=== PATIENT | male | born 1950 | race Caucasian/White ===

== ENCOUNTER → 2019-07-10 | Outpatient (CLI) | payer MEDICARE, OTHER ==
[2019-07-10 11:43] LABS: Microalb/Creat Ratio UR, Rand 11.122 mg/g (0.000-30.000); Microalbumin, Random Urine 5.45 mg/L (0.000-20.000)
== END | disposition home or self-care (01) ==
LOC: LAB RH 10:54 → EDSTATUS 14:15 → LAB RH 14:43
DX: R80.9 Proteinuria, unspecified (principal)
CPT/HCPCS: 82043; 82570

== ENCOUNTER → 2019-08-11 | Outpatient (CLI) | payer MEDICARE, OTHER ==
[2019-08-11 10:18] LABS: International Normalized Ratio 2.24; Prothrombin Time Results 22.9 Sec (9.7-11.5)
== END | disposition home or self-care (01) ==
LOC: LAB RH 08:20 → EDSTATUS 14:01
DX: I25.10 Atherosclerotic heart disease of native coronary artery without angina pectoris (principal); M79.2 Neuralgia and neuritis, unspecified
CPT/HCPCS: 36415; 85610

== ENCOUNTER → 2019-08-25 | Outpatient (CLI) | payer MEDICARE, OTHER ==
[2019-08-25 10:21] LABS: International Normalized Ratio 1.44; Prothrombin Time Results 15.1 Sec (9.7-11.5)
== END | disposition home or self-care (01) ==
LOC: LAB RH 08:35 → EDSTATUS 15:31 → LAB RH 15:33
DX: I25.10 Atherosclerotic heart disease of native coronary artery without angina pectoris (principal); M79.2 Neuralgia and neuritis, unspecified
CPT/HCPCS: 36415; 85610

== ENCOUNTER → 2019-09-08 | Outpatient (CLI) | payer MEDICARE, OTHER ==
[2019-09-08 11:19] LABS: International Normalized Ratio 1.95; Prothrombin Time Results 20.1 Sec (9.7-11.5)
== END ==
LOC: LAB RH 09:46 → EDSTATUS 13:11
PROVIDERS: Family Medicine
DX: I48.0 Paroxysmal atrial fibrillation (principal)
CPT/HCPCS: 36415; 85610

== ENCOUNTER → 2019-09-15 | Outpatient (CLI) | payer MEDICARE, OTHER ==
[2019-09-15 10:24] LABS: International Normalized Ratio 2.63; Prothrombin Time Results 26.6 Sec (9.7-11.5)
== END | disposition home or self-care (01) ==
LOC: LAB RH 09:12 → EDSTATUS 14:20
PROVIDERS: Nurse Practitioner Gerontology
DX: I48.91 Unspecified atrial fibrillation (principal)
CPT/HCPCS: 36415; 85610

== ENCOUNTER → 2019-09-23 | Outpatient (CLI) | payer MEDICARE, OTHER ==
[2019-09-23 09:50] LABS: International Normalized Ratio 2.65; Prothrombin Time Results 26.8 Sec (9.7-11.5)
== END | disposition home or self-care (01) ==
LOC: LAB RH 08:09 → EDSTATUS 10:34
PROVIDERS: Family Medicine
DX: I48.0 Paroxysmal atrial fibrillation (principal)
CPT/HCPCS: 36415; 85610

== ENCOUNTER → 2019-10-07 | Outpatient (CLI) | payer MEDICARE, OTHER ==
[2019-10-07 09:34] LABS: International Normalized Ratio 2.86; Prothrombin Time Results 28.8 Sec (9.7-11.5)
== END | disposition home or self-care (01) ==
LOC: LAB RH 07:47 → EDSTATUS 11:40
PROVIDERS: Family Medicine
DX: I48.0 Paroxysmal atrial fibrillation (principal)
CPT/HCPCS: 36415; 85610

== ENCOUNTER → 2019-10-14 | Outpatient (CLI) | payer MEDICARE, OTHER ==
[2019-10-14 09:18] LABS: International Normalized Ratio 2.29; Prothrombin Time Results 23.4 Sec (9.7-11.5)
== END | disposition home or self-care (01) ==
LOC: LAB RH 07:23 → EDSTATUS 11:41
DX: I42.0 Dilated cardiomyopathy (principal)
CPT/HCPCS: 36415; 85610

== ENCOUNTER → 2019-11-06 | Outpatient (CLI) | payer MEDICARE, OTHER ==
[2019-11-06 12:10] LABS: Hematocrit 42.3 % (37.0-53.0); Mean Corpuscular HGB 28.3 pg (26.0-34.0); Mean Corpuscular HGB Conc 33.1 g/dL (31.5-36.5); Mean Corpuscular Volume 86 fL (80-100); Mean Platelet Volume 11.6 fL (9.1-12.4); Platelet Count 164 K/mm3 (150-400); RDW Coefficient Variation 11.8 % (11.7-14.2); RDW Standard Deviation 36.9 fL (35.1-46.3); Red Blood Cell Count 4.94 M/mm3 (4.30-5.90); White Blood Cell Count 5.72 K/mm3 (4.00-11.30)
[2019-11-06 12:35] LABS: Alanine Aminotransfer (ALT/SGP 15 U/L (12-78); Albumin, Blood 3.4 g/dL (3.4-5.0); Albumin/Globulin Ratio 1.1 (0.8-1.8); Alk Phos 98 U/L (50-136); Anion Gap 5 mmol/L (6-16); Aspartate Aminotrans (AST/SGOT 10 U/L (12-37); Bilirubin, Total 0.3 mg/dL (0.1-1.0); Blood Urea Nitrogen 19 mg/dL (8-24); Bun/Creatinine Ratio 18.8 (12.0-20.0); CHOL/HDL RATIO 6.5; CO2, Blood 30 mmol/L (21-32); Calcium, Blood 8.4 mg/dL (8.5-10.1); Chloride, Blood 97 mmol/L (98-108); Cholesterol 189 mg/dL (50-200); Creatinine, Blood 1.01 mg/dL (0.60-1.20); Globulin, Blood 3.1 g/dL (2.2-4.0); Glomerular Filtration Rate >60 (60-); Glucose, Blood 478 mg/dL (70-99); HDL Cholesterol 29 mg/dL (>39); LDL/HDL RATIO Unable to Calculate; Low Density Lipoprotein Chol Unable to Calculate mg/dL (0-110); Potassium, Blood 3.8 mmol/L (3.5-5.5); Sodium, Blood 132 mmol/L (136-145); Total Protein, Blood 6.5 g/dL (6.4-8.2); Triglycerides 543 mg/dL (30-160); Very Low Density Lipoprot Chol Unable to Calculate mg/dL (6-32)
[2019-11-06 12:37] LABS: Carbamazepine 7.1 ug/mL (4.0-12.0)
== END | disposition home or self-care (01) ==
LOC: LAB RH 11:21 → EDSTATUS 12:48
PROVIDERS: Family Medicine
DX: Z51.81 Encounter for therapeutic drug level monitoring (principal); E11.40 Type 2 diabetes mellitus with diabetic neuropathy, unspecified; Z79.899 Other long term (current) drug therapy
CPT/HCPCS: 80053; 80061; 80156; 83036; 85027

== ENCOUNTER → 2019-12-06 | Outpatient (CLI) | payer MEDICARE, OTHER ==
[2019-12-06 17:14] LABS: Source, Urine Clean Catch
[2019-12-06 17:22] LABS: Bilirubin, Urine Neg (Neg); Blood, Urine Neg (Neg); Glucose Qualitative, Urine 4+ (Neg); Ketones, Urine 1+ (Neg); Leukocyte Esterase, Urine Neg (Neg); Nitrite, Urine Neg (Neg); Protein, Urine Neg (Neg); Urobilinogen, Urine NORM (Normal)
[2019-12-06 17:32] LABS: Appearance, Urine Clear (Clear); Color, Urine Pale Yellow (P-Yellow)
== END | disposition home or self-care (01) ==
LOC: EDSTATUS 12:11 → LAB RH 16:10
PROVIDERS: Family Medicine
DX: N39.0 Urinary tract infection, site not specified (principal)
CPT/HCPCS: 81003

== ENCOUNTER → 2019-12-10 | Outpatient (CLI) | payer MEDICARE, OTHER ==
[2019-12-10 18:25] LABS: BASOPHILS ABSOLUTE AUTO 0.05 K/mm3 (0.00-0.23); BASOPHILS PERCENT AUTO 1 % (0-2); EOSINOPHILS PERCENT AUTO 3 % (0-6); Hematocrit 41.1 % (37.0-53.0); Hemoglobin 13.5 g/dL (13.5-17.5); IMMATURE GRAN ABSOLUTE AUTO 0.02 K/mm3 (0.00-0.10); IMMATURE GRAN PERCENT AUTO 0 % (0-1); LYMPHOCYTES ABSOLUTE AUTO 2.11 K/mm3 (0.84-5.20); LYMPHOCYTES PERCENT AUTO 30 % (21-46); MONOCYTES ABSOLUTE AUTO 0.57 K/mm3 (0.16-1.47); MONOCYTES PERCENT AUTO 8 % (4-13); Mean Corpuscular HGB 28.2 pg (26.0-34.0); Mean Corpuscular HGB Conc 32.8 g/dL (31.5-36.5); Mean Corpuscular Volume 86 fL (80-100); Mean Platelet Volume 11.2 fL (9.1-12.4); NEUTROPHILS ABSOLUTE AUTO 4.11 K/mm3 (1.96-9.15); NEUTROPHILS PERCENT AUTO 58 % (41-73); Platelet Count 203 K/mm3 (150-400); RDW Coefficient Variation 11.9 % (11.7-14.2); RDW Standard Deviation 37.5 fL (35.1-46.3); Red Blood Cell Count 4.78 M/mm3 (4.30-5.90); White Blood Cell Count 7.06 K/mm3 (4.00-11.30)
[2019-12-10 18:39] LABS: Alanine Aminotransfer (ALT/SGP 20 U/L (12-78); Alk Phos 89 U/L (50-136); Anion Gap 5 mmol/L (6-16); Aspartate Aminotrans (AST/SGOT 14 U/L (12-37); Bilirubin, Total 0.2 mg/dL (0.1-1.0); Blood Urea Nitrogen 15 mg/dL (8-24); Bun/Creatinine Ratio 15.7 (12.0-20.0); CO2, Blood 32 mmol/L (21-32); Calcium, Blood 8.2 mg/dL (8.5-10.1); Chloride, Blood 98 mmol/L (98-108); Creatinine, Blood 0.96 mg/dL (0.60-1.20); Glomerular Filtration Rate >60 (60-); Glucose, Blood 326 mg/dL (70-99); Potassium, Blood 3.9 mmol/L (3.5-5.5); Sodium, Blood 135 mmol/L (136-145)
== END | disposition home or self-care (01) ==
LOC: EDSTATUS 12:12 → LAB RH 18:11
PROVIDERS: Family Medicine
DX: I50.30 Unspecified diastolic (congestive) heart failure (principal)
CPT/HCPCS: 80053; 85025

== ENCOUNTER → 2020-01-05 | Outpatient (CLI) | payer MEDICARE, OTHER ==
[2020-01-05 14:11] LABS: Anion Gap 3 mmol/L (6-16); Blood Urea Nitrogen 12 mg/dL (8-24); Bun/Creatinine Ratio 14.3 (12.0-20.0); CO2, Blood 36 mmol/L (21-32); Calcium, Blood 8.8 mg/dL (8.5-10.1); Chloride, Blood 97 mmol/L (98-108); Creatinine, Blood 0.84 mg/dL (0.60-1.20); Glomerular Filtration Rate >60 (60-); Glucose, Blood 229 mg/dL (70-99); Potassium, Blood 3.8 mmol/L (3.5-5.5); Sodium, Blood 136 mmol/L (136-145)
== END | disposition home or self-care (01) ==
LOC: EDSTATUS 10:48 → LAB RH 13:21
PROVIDERS: Family Medicine
DX: E11.40 Type 2 diabetes mellitus with diabetic neuropathy, unspecified (principal)
CPT/HCPCS: 80048

== ENCOUNTER → 2020-03-04 | Outpatient (CLI) | payer MEDICARE, OTHER ==
[2020-03-04 11:26] LABS: Prothrombin Time Results 61.3 Sec (9.7-11.5)
[2020-03-04 11:27] LABS: International Normalized Ratio 6.36
[2020-03-04 19:28] LABS: BASOPHILS ABSOLUTE AUTO 0.05 K/mm3 (0.00-0.23); BASOPHILS PERCENT AUTO 1 % (0-2); EOSINOPHILS ABSOLUTE AUTO 0.28 K/mm3 (0.00-0.68); EOSINOPHILS PERCENT AUTO 3 % (0-6); Hematocrit 42.9 % (37.0-53.0); Hemoglobin 14.1 g/dL (13.5-17.5); IMMATURE GRAN ABSOLUTE AUTO 0.04 K/mm3 (0.00-0.10); IMMATURE GRAN PERCENT AUTO 1 % (0-1); LYMPHOCYTES ABSOLUTE AUTO 2.66 K/mm3 (0.84-5.20); LYMPHOCYTES PERCENT AUTO 31 % (21-46); MONOCYTES ABSOLUTE AUTO 0.78 K/mm3 (0.16-1.47); MONOCYTES PERCENT AUTO 9 % (4-13); Mean Corpuscular HGB 28.3 pg (26.0-34.0); Mean Corpuscular HGB Conc 32.9 g/dL (31.5-36.5); Mean Corpuscular Volume 86 fL (80-100); Mean Platelet Volume 10.8 fL (9.1-12.4); NEUTROPHILS ABSOLUTE AUTO 4.76 K/mm3 (1.96-9.15); NEUTROPHILS PERCENT AUTO 56 % (41-73); Platelet Count 201 K/mm3 (150-400); Red Blood Cell Count 4.99 M/mm3 (4.30-5.90); White Blood Cell Count 8.57 K/mm3 (4.00-11.30)
[2020-03-04 20:24] LABS: Alanine Aminotransfer (ALT/SGP 24 U/L (12-78); Albumin, Blood 3.3 g/dL (3.4-5.0); Albumin/Globulin Ratio 1.1 (0.8-1.8); Alk Phos 72 U/L (50-136); Anion Gap 5 mmol/L (6-16); Aspartate Aminotrans (AST/SGOT 15 U/L (12-37); Bilirubin, Total 0.3 mg/dL (0.1-1.0); Blood Urea Nitrogen 21 mg/dL (8-24); Bun/Creatinine Ratio 19.1 (12.0-20.0); CO2, Blood 35 mmol/L (21-32); Calcium, Blood 8.6 mg/dL (8.5-10.1); Chloride, Blood 98 mmol/L (98-108); Globulin, Blood 3.1 g/dL (2.2-4.0); Glomerular Filtration Rate >60 (60-); Glucose, Blood 238 mg/dL (70-99); Potassium, Blood 3.7 mmol/L (3.5-5.5); Sodium, Blood 138 mmol/L (136-145); Total Protein, Blood 6.4 g/dL (6.4-8.2)
== END | disposition home or self-care (01) ==
LOC: EDSTATUS 08:23 → LAB RH 10:49
PROVIDERS: Family Medicine
DX: I25.10 Atherosclerotic heart disease of native coronary artery without angina pectoris (principal); I48.0 Paroxysmal atrial fibrillation; I10 Essential (primary) hypertension
CPT/HCPCS: 80053; 83880; 85025; 85610

== ENCOUNTER → 2020-09-14 | Outpatient (CLI) | payer MEDICARE, OTHER ==
[~2020-09-14] MED LIST: ACET325 PO; ANORO ELLIPTA1 EACH INH; ATOR20 PO; CARV25 PO; ELIQUIS5 M2 PO; FURO40 PO; HYDRA25 PO; LATA.005SO RIGHTEYE; LEVE500 PO; SENN187 PO; TERA5 PO
[2020-09-14 11:20] LABS: Anion Gap 1 mmol/L (6-16); Blood Urea Nitrogen 12 mg/dL (8-24); Bun/Creatinine Ratio 12.8 (12.0-20.0); CO2, Blood 42 mmol/L (21-32); Calcium, Blood 8.9 mg/dL (8.5-10.1); Chloride, Blood 96 mmol/L (98-108); Creatinine, Blood 0.94 mg/dL (0.60-1.20); Glomerular Filtration Rate >60 (60-); Glucose, Blood 108 mg/dL (70-99); Potassium, Blood 3.7 mmol/L (3.5-5.5); Sodium, Blood 139 mmol/L (136-145)
== END | disposition home or self-care (01) ==
LOC: LAB RH 09:57 → EDSTATUS 12:21
PROVIDERS: Family Medicine
DX: E11.40 Type 2 diabetes mellitus with diabetic neuropathy, unspecified (principal); I10 Essential (primary) hypertension
CPT/HCPCS: 80048; 83036

== ENCOUNTER → 2020-12-27 | Outpatient (CLI) | payer MEDICARE, OTHER ==
[2020-12-27 20:14] LABS: Hematocrit 46.2 % (37.0-53.0); Hemoglobin 13.9 g/dL (13.5-17.5); Mean Corpuscular HGB 26.1 pg (26.0-34.0); Mean Corpuscular HGB Conc 30.1 g/dL (31.5-36.5); Mean Corpuscular Volume 87 fL (80-100); Mean Platelet Volume 10.5 fL (9.1-12.4); Platelet Count 213 K/mm3 (150-400); RDW Coefficient Variation 12.6 % (11.7-14.2); RDW Standard Deviation 39.6 fL (35.1-46.3); Red Blood Cell Count 5.32 M/mm3 (4.30-5.90); White Blood Cell Count 7.33 K/mm3 (4.00-11.30)
[2020-12-27 20:36] LABS: Anion Gap 2 mmol/L (6-16); Blood Urea Nitrogen 14 mg/dL (8-24); Bun/Creatinine Ratio 13.2 (12.0-20.0); CO2, Blood 39 mmol/L (21-32); Calcium, Blood 8.7 mg/dL (8.5-10.1); Chloride, Blood 94 mmol/L (98-108); Creatinine, Blood 1.06 mg/dL (0.60-1.20); Glomerular Filtration Rate >60 (60-); Glucose, Blood 183 mg/dL (70-99); Potassium, Blood 3.9 mmol/L (3.5-5.5); Sodium, Blood 135 mmol/L (136-145)
== END ==
LOC: EDSTATUS 10:03 → LAB RH 19:06
PROVIDERS: Internal Medicine
DX: R73.09 Other abnormal glucose (principal); R79.89 Other specified abnormal findings of blood chemistry; R68.89 Other general symptoms and signs
CPT/HCPCS: 80048; 83036; 85027

== ENCOUNTER 2021-01-16 07:17 | Emergency (ER) | payer MEDICARE, OTHER ==
[~2021-01-16] VITALS: Ht 175.3 cm; Wt 114.3 kg
[2021-01-16 07:37] LABS: Source, Urine Clean Catch
[2021-01-16 07:48] LABS: Appearance, Urine Clear (Clear); Bilirubin, Urine Neg (Neg); Blood, Urine Neg (Neg); Color, Urine Yellow (P-Yellow); Glucose Qualitative, Urine Neg (Neg); Ketones, Urine Neg (Neg); Leukocyte Esterase, Urine Neg (Neg); Nitrite, Urine Neg (Neg); Protein, Urine 2+ (Neg); Urobilinogen, Urine NORM (Normal)
[2021-01-16 08:05] LABS: Bacteria Not Seen /hpf; Red Blood Cells, Urine 0-2 /hpf (0-2); Squamous Epithelial Cells Not Seen /hpf (Few); White Blood Cells, Urine 0-2 /hpf (0-5)
[2021-01-16 08:07] LABS: BASOPHILS ABSOLUTE AUTO 0.07 K/mm3 (0.00-0.23); BASOPHILS PERCENT AUTO 1 % (0-2); EOSINOPHILS ABSOLUTE AUTO 0.26 K/mm3 (0.00-0.68); EOSINOPHILS PERCENT AUTO 3 % (0-6); Hematocrit 47.7 % (37.0-53.0); Hemoglobin 14.5 g/dL (13.5-17.5); IMMATURE GRAN ABSOLUTE AUTO 0.03 K/mm3 (0.00-0.10); IMMATURE GRAN PERCENT AUTO 0 % (0-1); LYMPHOCYTES ABSOLUTE AUTO 1.87 K/mm3 (0.84-5.20); LYMPHOCYTES PERCENT AUTO 23 % (21-46); MONOCYTES ABSOLUTE AUTO 0.73 K/mm3 (0.16-1.47); MONOCYTES PERCENT AUTO 9 % (4-13); Mean Corpuscular HGB 26.3 pg (26.0-34.0); Mean Corpuscular HGB Conc 30.4 g/dL (31.5-36.5); Mean Corpuscular Volume 87 fL (80-100); Mean Platelet Volume 10.4 fL (9.1-12.4); NEUTROPHILS ABSOLUTE AUTO 5.24 K/mm3 (1.96-9.15); NEUTROPHILS PERCENT AUTO 64 % (41-73); Platelet Count 194 K/mm3 (150-400); RDW Coefficient Variation 12.4 % (11.7-14.2); RDW Standard Deviation 39.3 fL (35.1-46.3); Red Blood Cell Count 5.51 M/mm3 (4.30-5.90)
[2021-01-16 08:26] LABS: Alanine Aminotransfer (ALT/SGP 17 U/L (12-78); Albumin, Blood 3.2 g/dL (3.4-5.0); Albumin/Globulin Ratio 0.9 (0.8-1.8); Alk Phos 88 U/L (50-136); Aspartate Aminotrans (AST/SGOT 18 U/L (12-37); Bilirubin, Total 0.6 mg/dL (0.1-1.0); Blood Urea Nitrogen 12 mg/dL (8-24); Bun/Creatinine Ratio 10.9 (12.0-20.0); Calcium, Blood 8.7 mg/dL (8.5-10.1); Chloride, Blood 94 mmol/L (98-108); Globulin, Blood 3.6 g/dL (2.2-4.0); Glomerular Filtration Rate >60 (60-); Glucose, Blood 117 mg/dL (70-99); Potassium, Blood 4.2 mmol/L (3.5-5.5); Sodium, Blood 138 mmol/L (136-145); Total Protein, Blood 6.8 g/dL (6.4-8.2); Troponin I <0.015 ng/mL (0.000-0.040)
[2021-01-16 08:40] LABS: Anion Gap Unable to Calculate mmol/L (6-16)
[2021-01-16 08:41] LABS: CO2, Blood >45 mmol/L (21-32)
[2021-01-16] MEDS ORDERED: ATOR20 PO (08:46)
[2021-01-16] MEDS ORDERED: FURO40 PO (09:06)
[2021-01-16] MEDS ORDERED: ANORO ELLIPTA1 EACH INH (09:06)
[2021-01-16] MEDS ORDERED: LATA.005SO RIGHTEYE (09:07)
[2021-01-16] MEDS ORDERED: TERA5 PO (09:07)
[2021-01-16] MEDS ORDERED: SENN187 PO (09:07)
[2021-01-16] MEDS ORDERED: LEVE500 PO (09:08)
[2021-01-16] MEDS ORDERED: ELIQUIS5 M2 PO (09:08)
[2021-01-16] MEDS ORDERED: CARV25 PO (09:08)
[2021-01-16] MEDS ORDERED: ACET325 PO (09:09)
[2021-01-16] MEDS ORDERED: HYDRA25 PO (09:09)
== END 2021-01-16 10:00 | disposition home or self-care (01) ==
LOC: ER 07:17
PROVIDERS: Emergency Medicine
DX: R10.9 Unspecified abdominal pain (principal); I48.91 Unspecified atrial fibrillation; J44.9 Chronic obstructive pulmonary disease, unspecified; E11.40 Type 2 diabetes mellitus with diabetic neuropathy, unspecified
CPT/HCPCS: 71046; 74176; 80053; 81001; 83690; 84484; 85025; 93005; 93010; 96374; 99285-25; J3010

== ENCOUNTER → 2021-02-13 | Outpatient (CLI) | payer OTHER ==
[~2021-02-13] MED LIST changes: +ALBU90OI INH; +ELIQUIS5 M3 PO; +INSULANPEN SC; +MIRALAX17 GM PO; +NITR.4SL SL; +NOVOLOG FL100 UNIT/3 SC; +POTA10T PO
[2021-02-13 23:11] LABS: BASOPHILS ABSOLUTE AUTO 0.05 K/mm3 (0.00-0.23); BASOPHILS PERCENT AUTO 1 % (0-2); EOSINOPHILS ABSOLUTE AUTO 0.26 K/mm3 (0.00-0.68); EOSINOPHILS PERCENT AUTO 4 % (0-6); Hematocrit 43.3 % (37.0-53.0); Hemoglobin 13.4 g/dL (13.5-17.5); IMMATURE GRAN ABSOLUTE AUTO 0.02 K/mm3 (0.00-0.10); IMMATURE GRAN PERCENT AUTO 0 % (0-1); LYMPHOCYTES PERCENT AUTO 26 % (21-46); MONOCYTES ABSOLUTE AUTO 0.77 K/mm3 (0.16-1.47); MONOCYTES PERCENT AUTO 11 % (4-13); Mean Corpuscular HGB 26.1 pg (26.0-34.0); Mean Corpuscular HGB Conc 30.9 g/dL (31.5-36.5); Mean Corpuscular Volume 84 fL (80-100); Mean Platelet Volume 10.5 fL (9.1-12.4); NEUTROPHILS ABSOLUTE AUTO 4.35 K/mm3 (1.96-9.15); NEUTROPHILS PERCENT AUTO 59 % (41-73); Platelet Count 187 K/mm3 (150-400); RDW Coefficient Variation 12.5 % (11.7-14.2); RDW Standard Deviation 38.3 fL (35.1-46.3); Red Blood Cell Count 5.14 M/mm3 (4.30-5.90); White Blood Cell Count 7.35 K/mm3 (4.00-11.30)
[2021-02-13 23:23] LABS: Alanine Aminotransfer (ALT/SGP 15 U/L (12-78); Albumin, Blood 3.2 g/dL (3.4-5.0); Albumin/Globulin Ratio 0.9 (0.8-1.8); Alk Phos 88 U/L (50-136); Anion Gap 1 mmol/L (6-16); Aspartate Aminotrans (AST/SGOT 14 U/L (12-37); Bilirubin, Total 0.4 mg/dL (0.1-1.0); Blood Urea Nitrogen 16 mg/dL (8-24); Bun/Creatinine Ratio 14.2 (12.0-20.0); CO2, Blood 41 mmol/L (21-32); Calcium, Blood 8.7 mg/dL (8.5-10.1); Chloride, Blood 95 mmol/L (98-108); Creatinine, Blood 1.13 mg/dL (0.60-1.20); Globulin, Blood 3.5 g/dL (2.2-4.0); Glomerular Filtration Rate >60 (60-); Glucose, Blood 184 mg/dL (70-99); Potassium, Blood 3.6 mmol/L (3.5-5.5); Sodium, Blood 137 mmol/L (136-145); Total Protein, Blood 6.7 g/dL (6.4-8.2)
== END ==
LOC: EDSTATUS 10:00 → LAB RH 21:40
PROVIDERS: Family Medicine
DX: E11.40 Type 2 diabetes mellitus with diabetic neuropathy, unspecified (principal); I48.0 Paroxysmal atrial fibrillation; Z91.041 Radiographic dye allergy status
CPT/HCPCS: 80053; 85025

== ENCOUNTER 2021-03-07 22:23 | Inpatient (IN) | payer OTHER ==
[~2021-03-07] VITALS: Ht 180.3 cm; Wt 109.3 kg
[~2021-03-07 22:23] MED LIST changes: -ALBU90OI INH; -ELIQUIS5 M3 PO; -INSULANPEN SC; -MIRALAX17 GM PO; -NITR.4SL SL; -NOVOLOG FL100 UNIT/3 SC; -POTA10T PO
[2021-03-07 23:20] LABS: BASOPHILS ABSOLUTE AUTO 0.01 K/mm3 (0.00-0.23); BASOPHILS PERCENT AUTO 0 % (0-2); EOSINOPHILS ABSOLUTE AUTO 0.02 K/mm3 (0.00-0.68); EOSINOPHILS PERCENT AUTO 0 % (0-6); Hematocrit 44.2 % (37.0-53.0); Hemoglobin 13.3 g/dL (13.5-17.5); IMMATURE GRAN ABSOLUTE AUTO 0.01 K/mm3 (0.00-0.10); IMMATURE GRAN PERCENT AUTO 0 % (0-1); LYMPHOCYTES ABSOLUTE AUTO 1.35 K/mm3 (0.84-5.20); LYMPHOCYTES PERCENT AUTO 25 % (21-46); MONOCYTES ABSOLUTE AUTO 1.08 K/mm3 (0.16-1.47); MONOCYTES PERCENT AUTO 20 % (4-13); Mean Corpuscular HGB 26.1 pg (26.0-34.0); Mean Corpuscular HGB Conc 30.1 g/dL (31.5-36.5); Mean Corpuscular Volume 87 fL (80-100); Mean Platelet Volume 10.4 fL (9.1-12.4); NEUTROPHILS ABSOLUTE AUTO 2.97 K/mm3 (1.96-9.15); NEUTROPHILS PERCENT AUTO 55 % (41-73); Platelet Count 160 K/mm3 (150-400); RDW Coefficient Variation 12.9 % (11.7-14.2); RDW Standard Deviation 41.2 fL (35.1-46.3); White Blood Cell Count 5.44 K/mm3 (4.00-11.30)
[2021-03-07 23:40] LABS: PCO2 Arterial 100 mmHg (35-45); PO2 Arterial 108 mmHg (80-100); pH Blood Arterial 7.26 (7.35-7.45)
[2021-03-07 23:41] LABS: Albumin/Globulin Ratio 0.9 (0.8-1.8); Bilirubin, Total 0.5 mg/dL (0.1-1.0); Bun/Creatinine Ratio 13.9 (12.0-20.0); Calcium, Blood 8.1 mg/dL (8.5-10.1); Creatinine, Blood 1.22 mg/dL (0.60-1.20); Globulin, Blood 3.2 g/dL (2.2-4.0); Potassium, Blood 3.8 mmol/L (3.5-5.5); Total Protein, Blood 6.2 g/dL (6.4-8.2); Troponin I 0.03 ng/mL (0.000-0.040)
[2021-03-07 23:57] LABS: SARS-Cov-2 (COVID-19) PCR, MMC POSITIVE (NEGATIVE)
[2021-03-08] MEDS ORDERED: ELIQUIS5 M3 PO (00:15)
[2021-03-08 05:14] LABS: PCO2 Arterial 75.7 mmHg (35-45); PO2 Arterial 63.7 mmHg (80-100); pH Blood Arterial 7.35 (7.35-7.45)
[2021-03-08 06:27] LABS: Anion Gap 6 mmol/L (6-16); Blood Urea Nitrogen 19 mg/dL (8-24); Bun/Creatinine Ratio 16.2 (12.0-20.0); CO2, Blood 37 mmol/L (21-32); Calcium, Blood 8.4 mg/dL (8.5-10.1); Chloride, Blood 94 mmol/L (98-108); Creatinine, Blood 1.17 mg/dL (0.60-1.20); Glomerular Filtration Rate >60 (60-); Glucose, Blood 162 mg/dL (70-99); Potassium, Blood 3.9 mmol/L (3.5-5.5); Sodium, Blood 137 mmol/L (136-145)
--- NOTE | 2021-03-08 07:19 | NUR ---
SHIFT SUMMARY PT SOMNOLENT ON BIPAP ON ARRIVAL FROM ER, DIFFICULT TO ESTABLISH WHETHER PT IS AO D/T PT SOMNOLENCE AND WEARING BIPAP. NODS AND SHAKES HEAD TO SOME ANSWERS, SHRUGS AT OTHERS, SEEMS AWARE OF SURROUNDINGS. ONCE TELE WAS SUCCESSFULLY ESTABLISHED PT'S RHYTHM SHOWS A FLUTTER IN 80'S. PT ON BIPAP 22/10 FIO2 55%. SATS 94-97% ON BIPAP. SLEEPS THROUGH AM AFTER BEING SETTLED FROM ER. IV SALINE LOCKED.
--- NOTE | 2021-03-08 07:56 | NUR ---
[place] of care Pt is a/o to himself but is having a hard time verbalizing his needs. He was given a pen and paper but his hand writing is hardly legible. He was able to report that he is confused. He is currently dependent of the Bipap @ 50 % o2. Per report he lives at [facility] which is where his lives with him. He is sitting up in bed watching tv and the bed alarm is on for his safety.
--- NOTE | 2021-03-08 12:22 | NUR ---
NEURO ASSESSMENT UPDATE: PATIENT IS SOUNDING MORE CLEAR WHEN SPEAKING, HAND WRITTEN REQUESTS MORE LEGIBLE. PATIENT MORE AWARE OF POSITION IN BED, NEEDED TO REPOSITION PATIENT, PATTIENT IS REPOSITIONED, ATTENDS C/D/I, EDUCATION GIVEN ON BIPAP THERAPY, AND GAS EXCHANGE. PATIENT IS ABLE TO USE CALL LIGHT, HEAD OF THE BED ELEVATED AND RESTING.
[2021-03-08 13:54] LABS: PCO2 Arterial 61.3 mmHg (35-45); PO2 Arterial 63.5 mmHg (80-100); pH Blood Arterial 7.42 (7.35-7.45)
[2021-03-08 15:59] LABS: Source, Urine Catheter
[2021-03-08 16:17] LABS: Appearance, Urine Clear (Clear); Bilirubin, Urine Neg (Neg); Blood, Urine 1+ (Neg); Color, Urine Yellow (P-Yellow); Glucose Qualitative, Urine Neg (Neg); Ketones, Urine 1+ (Neg); Leukocyte Esterase, Urine Neg (Neg); Nitrite, Urine Neg (Neg); Protein, Urine 2+ (Neg); Specific Gravity, Urine 1.025 (1.003-1.022); Urobilinogen, Urine NORM (Normal)
[2021-03-08 16:53] LABS: Red Blood Cells, Urine Rare /hpf (0-2); White Blood Cells, Urine 0-2 /hpf (0-5)
[2021-03-08 16:54] LABS: Bacteria Mod /hpf; Squamous Epithelial Cells Rare /hpf (Few)
--- NOTE | 2021-03-08 17:03 | NUR ---
SHIFT SUMMARY: RECIEVED PATIENT ON 03/08/2021 AT 0715, PATIENT WAS RESTING WITH A BIPAP IN PLACE AT22/10 WITH 55% O2. WHEN PREFORMING INTIAL ASSESSMENT, PATIENT WAS SPEAKING INCOMPREHENSIBLE, WAS LETHARGIC, ATRIAL FLUTTER AT 105, SPO2 IN THE 90'S. NOW, PATIENT IS ON AN OXIMIZER 13L, SP02 >94%, ATRIAL FLUTTER 82, REPOSITIONED MULTIPLE TIMES, WATERS IN PLACE, SPEECH PATHOLOGY EVAL PLEASE SEE NOTE FOR SPECIAL FEEDING INSTRUCTIONS. SPEECH IS UNDERSTANDABLE WHEN AWAKE, IS ABLE TO HELP MINIMALLY IN REPOSITIONING. CO2 61.3 AT 1353. FROM 100.0 ON FIRST ABG. SODIUM AND FLUID RESTRICTION OF 1500. 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
[2021-03-09 04:25] LABS: Anion Gap 5 mmol/L (6-16); Blood Urea Nitrogen 33 mg/dL (8-24); Bun/Creatinine Ratio 29.2 (12.0-20.0); CO2, Blood 36 mmol/L (21-32); Calcium, Blood 8.5 mg/dL (8.5-10.1); Chloride, Blood 93 mmol/L (98-108); Creatinine, Blood 1.13 mg/dL (0.60-1.20); Glomerular Filtration Rate >60 (60-); Glucose, Blood 307 mg/dL (70-99); Potassium, Blood 4.4 mmol/L (3.5-5.5); Sodium, Blood 134 mmol/L (136-145)
--- NOTE | 2021-03-09 05:51 | NUR ---
THIS LN TOOK OVER CARE AT 1845 PATIENT IS ALERT AND ORIENTATED TO SELF, PLACE AND TIME, DISORIENTATED TO SITUATION, " I TRIED TO GO TO BATHROOM DIDN'T WORK OUT', I EXPLAINED WHY PATIENT HAS BEEN ADMITTED AND HE EXPRESSED HIS AND MOM IN [place] HAVE COVID. CALL LIGHT IS WITHIN REACH AND DEMONSTRATED HOW TO USE, PATIENT IS ABLE TO MAKE NEEDS KNOWN WITH DELAYED RESPONSES, ABLE TO TURN SIDE TO SIDE AND ASSIST WITH TURNING IN BED, STILL REQUIRING 2 PEOPLE. WATERS CATETHER IS IN PLACE DRAINING YELLOW URINE, PATIENT ATE 100% OF DINNER AND 360 FLUIDS, RESTING WITH BIPAP ON, NOTED UPON INITIAL ASSESSMENT PATIENT HAS RED BLANCHABLE ON BRIDGE OF NOSE, PROTECTED GEL APPLIED AND SLEEPING WITH BIPAP ON THROUGHOUT THE NIGHT AT 22/10 FIO2 55%. THIS LN WILL CONTINUE TO MONITOR.
--- NOTE | 2021-03-09 10:55 | NUR ---
ALERT AND ORIENTED X3. ABLE TO STATE - NAME, BIRTHDATE, AT HOSPITAL AND FAMILY MEMEBERS. UNABLE TO STATE TIME/DATE. SPEECH GARBELED AND HARD TO UNDERSTAND. PATIENT HARD OF HEARING. PUPILS EQUAL, ROUND, AND REACTIVE. DENIES NUMBNESS/TINGLING. TELE SHOWING AFLUTTER WITH HR 80'S. DENIES CHEST PAIN/PRESSURE. VITAL SIGNS STABLE. ON BIPAP WITH SETTINGS 18/10 AT 45% SATING HIGH 90'S. WHEN EATING PATIENT ON 13L OXYMIZER. SPEECH THERAPY IN TO SEE PATIENT THIS AM, DIET ADVANCED. ORAL CARE Q4. DENTURES IN PLACE. BOWEL TONES PRESENT. WATERS CATH IN PLACE DRAINING CLEAR/YELLOW URINE TO GRAVITY. IV TO LEFT HAND, SALINE LOCKED. CALL LIGHT IN REACH. BED ALARM ON FOR SAFETY WILL CONTINUE TO MONITOR.
--- NOTE | 2021-03-09 13:22 | NUR ---
CALL PLACED TO DR. BATISTA. NEW ORDERS FOR PARAMETERS ON SCHEDULED HYDRALAZINE.
--- NOTE | 2021-03-09 14:41 | NUR ---
PT ABLE TO COME OFF BIPAP FOR MEALS. WHEN OFF BIPAP PATIENT MAINTAINING SATS WITH 13L OXYMIZER. ORAL CARE AFTER MEALS AND BIPAP REPLACED. CALL LIGHT IN REACH.
--- NOTE | 2021-03-09 19:19 | NUR ---
SHIFT SUMMARY: NO ACUTE CHANGES. BIPAP SETTINGS AT 18/10 AND 45% SATING 95-96%. ON 13L OXYMIZER WHEN OFF BIPAP FOR MEALS. PATIENT BEEN OFF BIPAP 1.5 HOURS THIS EVENING FOR DINNER. GOOD APPETITE, EATING WELL. Q2 TURNING AND NEEDED. SKIN C/D/I. BED BATH AND SHAVE. WATERS CATH IN PLACE DRAINING CLEAR/YELLOW URINE. CALLING APPROPRIATELY. BED ALARM ON FOR SAFETY. CALL LIGHT IN REACH. REPORTED OFF TO ONCOMING RN.
[2021-03-10 05:31] LABS: PCO2 Arterial 67.6 mmHg (35-45); PO2 Arterial 98.2 mmHg (80-100); pH Blood Arterial 7.44 (7.35-7.45)
[2021-03-10 08:58] LABS: Anion Gap 2 mmol/L (6-16); Blood Urea Nitrogen 27 mg/dL (8-24); Bun/Creatinine Ratio 27.3 (12.0-20.0); CO2, Blood 42 mmol/L (21-32); Calcium, Blood 8.4 mg/dL (8.5-10.1); Chloride, Blood 95 mmol/L (98-108); Creatinine, Blood 0.99 mg/dL (0.60-1.20); Glomerular Filtration Rate >60 (60-); Glucose, Blood 285 mg/dL (70-99); Potassium, Blood 3.9 mmol/L (3.5-5.5); Sodium, Blood 139 mmol/L (136-145)
--- NOTE | 2021-03-10 10:38 | NUR ---
PT ALERT AND ORIENTED X3-4. GARBLED SPEECH AT TIMES HARD TO UNDERSTAND. HARD OF HEARING. PUPILS EQUAL, ROUND, AND REACTIVE. DENIES NUMBNESS/TINGLING. TELE SHOWING AFLUTTER WITH HR 70'S. VITAL SIGNS STABLE. ON 10L OXYMIZER SATING HIGH 90'S WILL TITRATE DOWN TOLERATED. WEARING BIPAP WHEN SLEEPING. BOWEL TONES PRESENT. WATERS CATH IN PLACE DRAINING CLEAR/YELLOW URINE. WEAK THROUGHOUT. FEET RED/SCALEY/DRY. PHYSICAL THERAPY ORDERED. BLOOD SUGARS ACHS. WILL CONTINUE TO MONITOR. CALL LIGHT IN REACH.
--- NOTE | 2021-03-10 18:25 | NUR ---
PT RESTING IN BED AFTER PM MEDICATION ADMIN. DINNER WAS HELD IN THE PANTRY THE PT WAS TOO TIRED TO EAT. PT MAKES NO COMPLAINTS OF CHEST PAIN OR SOB AT THIS TIME. PT REMAINS ON 10L WITH SATS 90 AND ABOVE. FC DRAINING TO GRAVITY. IV SL AND WNL. PT STATES HE IS WORRIED ABOUT HIS AT [facility] SHE HAS COVID. WILL CONTINUE TO MONITOR PT.
[2021-03-11 06:03] LABS: Anion Gap 3 mmol/L (6-16); Blood Urea Nitrogen 24 mg/dL (8-24); CO2, Blood 43 mmol/L (21-32); Calcium, Blood 8.3 mg/dL (8.5-10.1); Chloride, Blood 91 mmol/L (98-108); Creatinine, Blood 0.92 mg/dL (0.60-1.20); Glomerular Filtration Rate >60 (60-); Glucose, Blood 300 mg/dL (70-99); Potassium, Blood 3.6 mmol/L (3.5-5.5); Sodium, Blood 137 mmol/L (136-145)
--- NOTE | 2021-03-11 06:04 | NUR ---
SHIFT SUMMARY: ALERT, BUT VERY TIRED T/O THE NIGHT. SLEEPING MAJORITY OF THE SHIFT. DID WAKE UP TO TAKE MEDS. DECREASE IN OXYGEN TO 7 LITERS HOLDING 96-97%. WILL DECREASE FURTHER. CATHETER PATENT AND DRAINING WELL. NO PAIN NOTED. VS WNL. AFEBRILE. REDESIMEIR ADMINISTERED. NO ACUTE CHANGES TO NOTE THIS SHIFT. CALL LIGHT IN REACH.
--- NOTE | 2021-03-11 16:17 | NUR ---
SHIFT SUMMARY PT IS AAOX3, FORGETFUL AT TIMES, SOME CONFUSION NOTED, REDIRECTABLE, [place]. PLEASANT AND COOPERATIVE TO CARE. NO C/O PAIN OR ANY DISCOMFORT THIS SHIFT. PT REMAINS ON 7L O2 VIA OXYMIZER. SATS 90-93%. PT IS ON BEDREST AND REQUIRES 2P MAX ASSIST WITH BED MOBILITY. WATERS CATH PATENT AND DRAINING WELL. PT ON 1500 FLUID RESTRICTION. PT ABLE TO TOLERATE MEDICATIONS ONE AT A TIME WITH APPLE SAUCE. BED AT LOWEST POSITION. CALL LIGHT WITHIN REACH.
[2021-03-12 05:42] LABS: BASOPHILS PERCENT AUTO 0 % (0-2); EOSINOPHILS PERCENT AUTO 0 % (0-6); Hematocrit 47.2 % (37.0-53.0); Hemoglobin 14.9 g/dL (13.5-17.5); IMMATURE GRAN ABSOLUTE AUTO 0.01 K/mm3 (0.00-0.10); IMMATURE GRAN PERCENT AUTO 0 % (0-1); LYMPHOCYTES ABSOLUTE AUTO 0.78 K/mm3 (0.84-5.20); LYMPHOCYTES PERCENT AUTO 14 % (21-46); MONOCYTES ABSOLUTE AUTO 0.53 K/mm3 (0.16-1.47); MONOCYTES PERCENT AUTO 10 % (4-13); Mean Corpuscular HGB Conc 31.6 g/dL (31.5-36.5); Mean Corpuscular Volume 82 fL (80-100); Mean Platelet Volume 10.9 fL (9.1-12.4); NEUTROPHILS ABSOLUTE AUTO 4.09 K/mm3 (1.96-9.15); NEUTROPHILS PERCENT AUTO 76 % (41-73); Platelet Count 136 K/mm3 (150-400); RDW Coefficient Variation 12.4 % (11.7-14.2); Red Blood Cell Count 5.73 M/mm3 (4.30-5.90); White Blood Cell Count 5.41 K/mm3 (4.00-11.30)
[2021-03-12 05:44] LABS: PO2 Arterial 71.6 mmHg (80-100); pH Blood Arterial 7.44 (7.35-7.45)
[2021-03-12 05:49] LABS: PCO2 Arterial 71.2 mmHg (35-45)
[2021-03-12 06:00] LABS: Anion Gap 4 mmol/L (6-16); Blood Urea Nitrogen 27 mg/dL (8-24); CO2, Blood 41 mmol/L (21-32); Calcium, Blood 9.3 mg/dL (8.5-10.1); Chloride, Blood 92 mmol/L (98-108); Glomerular Filtration Rate >60 (60-); Glucose, Blood 334 mg/dL (70-99); Potassium, Blood 3.8 mmol/L (3.5-5.5); Sodium, Blood 137 mmol/L (136-145)
--- NOTE | 2021-03-12 08:08 | NUR ---
SHIFT SUMMARY: INCREASE IN AWARENESS. MORE VERBAL. NO PAIN. CATHETER PATENT AND DRAINING. LUNG SOUNDS DIMINISHED AND TIGHT AT TIMES. DYSPNEA WITH SOME MOVEMENT BUT STATES IS HIS NORM. DECREASE TO 4 LITERS ON NC. NO COUGH NOTED TONIGHT. SLEPT WELL T/O NIGHT. VS WNL. DID HAVE CRITICAL HIGH PCO2 THIS AM. REPORT GIVEN TO DAYSHIFT. CALL LIGHT IS IN REACH.
--- NOTE | 2021-03-12 16:18 | NUR ---
SHIFT SUMMARY PT AAOX3, ABLE TO MAKE NEEDS KNOWN. [place], FORGETUL AND SOME CONFUSION NOTED. PLEASANT, REDIRECTABLE AND COOPERATIVE TO CARE. NO C/O PAIN OR ANY DISCOMFORT THIS SHIFT. PT ON 5LPM O2 VIA OXYMIZER, SATS 92-95%. NO ACUTE CHANGES NOTED TO PT THIS SHIFT. BED AT LOWEST POSITION. CALL LIGHT WITHIN REACH.
--- NOTE | 2021-03-13 01:20 | NUR ---
PHYSICIAN COMMUNICATION INFORMED DR LUCAS OF HS CBG @369 & PTS COVERAGE INCLUDED 6U NOVALOG, 15U SEMGLEE. NO NEW ORDERS GIVEN. [facility] PT.
--- NOTE | 2021-03-13 05:02 | NUR ---
SHIFT SUMMARY ALERT. WOULDNT ANSWER ORIENTATION QUESTIONS, STATED "LEAVE ME ALONE". [place]. SLOW TO RESPOND, GRUNTS & MOANS WHEN CARE GIVEN. TELE A FLUTTER @75. HS CBG @369, INFORMED NIGHT HOSPITALIST & NO NEW ORDERS GIVEN AFTER SCHEDULED INSULIN COVERAGE PROVIDED. SPO2 >90% ON 4L O2 VIA CPAP. LUNGS ARE DIM c COARSE BREATH SOUNDS. +1 EDEMA BLE. WATERS PATENT & DRAINING. CALL LIGHT IN REACH. WCTM.
--- NOTE | 2021-03-13 12:34 | NUR ---
PT HAD CBG OF 419 PT TREATED PER EMAR AND DR MCFADDEN NOTIFIED.
--- NOTE | 2021-03-13 17:10 | NUR ---
Spoke with general internal medicine doctor Columba and discussed plan to have conversation regarding Pt's who is being admitted to the hospital. Columba reports importance of speaking loud, slow, and in simple terms with Pt. Pt level of understanding and orientation is questionable. Pt is A&OX2/3. Pt appears lethargic and mumbles with difficult to understand speach. Provided update on Pt's condition and plan to admit to the hospital. Explain that is confused and plan if to follow her wishes on POLST. Pt states "I will pray for her". Pt appears to have difficulty with keeping his eyes opened. Ended visit to allow Pt to rest. Palliative Care will remain available.
--- NOTE | 2021-03-14 06:13 | NUR ---
SHIFT SUMMARY AOX2-SELF, TOWN, FOLLOWING DIRECTIONS. UNAWARE WHERE IN [place] HE IS OR DATE, SITUATION. FORGETFUL & CONFUSED @TIMES. VSS. TELE AFIB/AFLUTTER @83 PER TELE STRUCTURAL IRON ERECTOR. SPO2 >90% ON 3L NC & 8L O2 VIA CPAP BLEED IN. LUNGS COARSE T/O. DENIES PAIN, N/V OR SOB. CALL LIGHT & BED ALARM IN PLACE. WCTM.
[2021-03-14] MEDS ORDERED: INSULANPEN SC (11:51)
[2021-03-14] MEDS ORDERED: NOVOLOG FL100 UNIT/3 SC (11:53)
--- NOTE | 2021-03-14 17:27 | NUR ---
Supportive visit this afternoon. Pt's spouse is in PCU and on comfort care. Pt had discussion with this RN and PC RN Parisa earlier today about his spouse and Pt going on comfort care. Pt is in agreement. Assisted staff with escorting Pt in transport chair to Pt's room so he can say his good byes. Offered therapeutic touch and gentle voice. Assisted staff with escorting Pt back to his room. Pt appears appreciative. Instructed Pt that this RN will keep him updated regarding his spouse. Palliative Care will remain available for supportive and therapeutic visits.
--- NOTE | 2021-03-15 05:56 | NUR ---
SHIFT SUMMARY NO ACUTE CHANGES THIS SHIFT. AOX2. FORGETFUL, SLOW TO RESPOND. VSS. SPO2 >90% ON 4L OXIMIZER OR BIPAP c O2 BLEED IN. TELE AFIB @87. REPORTS HIP PAIN, GAVE TYLENOL, ABLE TO REST. PLAN TO POSSIBLY DC. CALL LIGHT & BED ALARM IN PLACE.
--- NOTE | 2021-03-15 11:34 | NUR ---
BLOOD SUGAR 402, LI CALLED AND WILL PLACE ORDERS FOR AN ADDITIONAL 5 UNITS OF NOVOLOG AT LUNCH.
--- NOTE | 2021-03-15 14:34 | NUR ---
PATIENT TRANSFERRED TO [facility] VIA W/C TRANSPORT. DC PACKET SENT WITH TOUR LEADER. SPOKE WITH ANNE-MARIE JEFFERSON ABOUT PATIENTS WATERS AND WAS INSTRUCTED TO SEND PATIENT WITH IT AND HAVE THE STAFF A [facility] DO BLADDER TRAINING BEFORE PULLING. REPORT CALLED TO NURSE STEVIE AT [facility].
[2021-03-16] MEDS ORDERED: ALBU90OI INH (13:54)
[2021-03-16] MEDS ORDERED: NITR.4SL SL (13:54)
[2021-03-16] MEDS ORDERED: HYDRA25 PO (13:57)
[2021-03-16] MEDS ORDERED: MIRALAX17 GM PO (13:57)
[2021-03-16] MEDS ORDERED: POTA10T PO (14:00)
== END 2021-03-15 14:35 | DRG 177 ==
LOC: ER 22:23 → PCU 03-08 00:58 → ERHOLD 03-08 00:58 → MEDS 03-08 00:58 → PCU 03-08 02:54 → MEDS 03-10 11:06 → ENPENDDIS 03-14 12:15 → MEDS 03-15 14:35
PROVIDERS: Emergency Medicine; Family Medicine; Internal Medicine; Nurse Practitioner Acute Care; ADMIT Internal Medicine
PROC: 8E0ZXY6 Isolation (ICD-10-PCS; principal; 2021-03-08)
PROC: 5A0935A Assistance with Respiratory Ventilation, Less than 24 Consecutive Hours, High Flow/Velocity Cannula (ICD-10-PCS; 2021-03-08)
PROC: 3E0333Z Introduction of Anti-inflammatory into Peripheral Vein, Percutaneous Approach (ICD-10-PCS; 2021-03-08)
PROC: XW033E5 Introduction of Remdesivir Anti-infective into Peripheral Vein, Percutaneous Approach, New Technology Group 5 (ICD-10-PCS; 2021-03-08)
PROC: 5A09457 Assistance with Respiratory Ventilation, 24-96 Consecutive Hours, Continuous Positive Airway Pressure (ICD-10-PCS; 2021-03-10)
DX: U07.1 COVID-19 (principal); J96.21 Acute and chronic respiratory failure with hypoxia; J96.22 Acute and chronic respiratory failure with hypercapnia; G92 Toxic encephalopathy; J12.82 Pneumonia due to coronavirus disease 2019; I50.32 Chronic diastolic (congestive) heart failure; Z68.41 Body mass index [BMI] 40.0-44.9, adult; J44.9 Chronic obstructive pulmonary disease, unspecified; E11.40 Type 2 diabetes mellitus with diabetic neuropathy, unspecified; I11.0 Hypertensive heart disease with heart failure; I48.0 Paroxysmal atrial fibrillation; G47.33 Obstructive sleep apnea (adult) (pediatric); I95.9 Hypotension, unspecified; Z95.0 Presence of cardiac pacemaker; Z98.890 Other specified postprocedural states; Z88.8 Allergy status to other drugs, medicaments and biological substances; Z79.899 Other long term (current) drug therapy; E66.9 Obesity, unspecified; T38.0X5A Adverse effect of glucocorticoids and synthetic analogues, initial encounter; E11.65 Type 2 diabetes mellitus with hyperglycemia; Z79.51 Long term (current) use of inhaled steroids; Z79.01 Long term (current) use of anticoagulants; Z99.81 Dependence on supplemental oxygen; H91.90 Unspecified hearing loss, unspecified ear; R13.10 Dysphagia, unspecified; R79.89 Other specified abnormal findings of blood chemistry
CPT/HCPCS: 36415; 36600; 71045; 80048; 80053; 81001; 82803; 82947; 83036; 83605; 83880; 84484; 85025; 85379; 87040; 92526; 92610; 93005; 93010; 94640; 94660; 94760; 94762; 96374; 97110; 97116; 97161; 97165; 97530; 97530-CQ; 97535; 99285-25; A9270; J1100; J1650; J1815; U0004

== ENCOUNTER → 2021-03-07 | Outpatient (CLI) | payer OTHER ==
[2021-03-07 12:59] LABS: Source, Urine Clean Catch
[2021-03-07 13:58] LABS: Appearance, Urine Clear (Clear); Bilirubin, Urine Neg (Neg); Blood, Urine Neg (Neg); Color, Urine Yellow (P-Yellow); Glucose Qualitative, Urine Neg (Neg); Ketones, Urine Neg (Neg); Leukocyte Esterase, Urine Neg (Neg); Nitrite, Urine Neg (Neg); Protein, Urine 2+ (Neg); Specific Gravity, Urine 1.015 (1.003-1.022); Urobilinogen, Urine NORM (Normal)
[2021-03-07 15:06] LABS: Bacteria Few /hpf; Red Blood Cells, Urine 0-2 /hpf (0-2); Squamous Epithelial Cells Few /hpf (Few); White Blood Cells, Urine 0-2 /hpf (0-5)
== END | disposition home or self-care (01) ==
LOC: EDSTATUS 09:55 → LAB RH 12:56
PROVIDERS: Family Medicine
DX: N39.0 Urinary tract infection, site not specified (principal)
CPT/HCPCS: 81001

== ENCOUNTER 2021-03-16 11:59 | Inpatient (IN) | payer OTHER ==
[~2021-03-16] VITALS: Ht 175.3 cm; Wt 105.8 kg
[~2021-03-16 11:59] MED LIST changes: +ELIQUIS5 M3 PO; +INSULANPEN SC; +NOVOLOG FL100 UNIT/3 SC
[2021-03-16 12:46] LABS: PCO2 Arterial 68.2 mmHg (35-45); pH Blood Arterial 7.45 (7.35-7.45)
[2021-03-16 13:20] LABS: BASOPHILS ABSOLUTE AUTO 0.03 K/mm3 (0.00-0.23); BASOPHILS PERCENT AUTO 0 % (0-2); EOSINOPHILS PERCENT AUTO 0 % (0-6); Hemoglobin 17.1 g/dL (13.5-17.5); IMMATURE GRAN ABSOLUTE AUTO 0.14 K/mm3 (0.00-0.10); IMMATURE GRAN PERCENT AUTO 1 % (0-1); LYMPHOCYTES ABSOLUTE AUTO 0.57 K/mm3 (0.84-5.20); LYMPHOCYTES PERCENT AUTO 3 % (21-46); MONOCYTES PERCENT AUTO 10 % (4-13); Mean Corpuscular HGB 25.6 pg (26.0-34.0); Mean Corpuscular HGB Conc 30.9 g/dL (31.5-36.5); Mean Corpuscular Volume 83 fL (80-100); NEUTROPHILS ABSOLUTE AUTO 14.92 K/mm3 (1.96-9.15); NEUTROPHILS PERCENT AUTO 86 % (41-73); Platelet Count 195 K/mm3 (150-400); RDW Coefficient Variation 13.2 % (11.7-14.2); Red Blood Cell Count 6.67 M/mm3 (4.30-5.90); White Blood Cell Count 17.36 K/mm3 (4.00-11.30)
[2021-03-16 13:25] LABS: Alanine Aminotransfer (ALT/SGP 20 U/L (12-78); Albumin, Blood 3.1 g/dL (3.4-5.0); Albumin/Globulin Ratio 0.8 (0.8-1.8); Alk Phos 75 U/L (50-136); Anion Gap 3 mmol/L (6-16); Aspartate Aminotrans (AST/SGOT 11 U/L (12-37); Bilirubin, Total 1.2 mg/dL (0.1-1.0); Blood Urea Nitrogen 39 mg/dL (8-24); Bun/Creatinine Ratio 36.4 (12.0-20.0); CO2, Blood 43 mmol/L (21-32); Calcium, Blood 9.2 mg/dL (8.5-10.1); Chloride, Blood 92 mmol/L (98-108); Creatinine, Blood 1.07 mg/dL (0.60-1.20); Globulin, Blood 3.9 g/dL (2.2-4.0); Glomerular Filtration Rate >60 (60-); Glucose, Blood 220 mg/dL (70-99); Potassium, Blood 3.7 mmol/L (3.5-5.5); Sodium, Blood 138 mmol/L (136-145); Troponin I 0.037 ng/mL (0.000-0.040)
[2021-03-16 13:31] LABS: Hematocrit 55.4 % (37.0-53.0)
[2021-03-16] MEDS ORDERED: NITR.4SL SL (13:54)
[2021-03-16] MEDS ORDERED: ALBU90OI INH (13:54)
[2021-03-16] MEDS ORDERED: HYDRA25 PO (13:57)
[2021-03-16] MEDS ORDERED: MIRALAX17 GM PO (13:57)
[2021-03-16] MEDS ORDERED: POTA10T PO (14:00)
[2021-03-16 18:26] LABS: Source, Urine Catheter
[2021-03-16 18:31] LABS: Bilirubin, Urine Neg (Neg); Blood, Urine 5+ (Neg); Glucose Qualitative, Urine Neg (Neg); Ketones, Urine Neg (Neg); Leukocyte Esterase, Urine 3+ (Neg); Nitrite, Urine Neg (Neg); Protein, Urine 3+ (Neg); Specific Gravity, Urine 1.015 (1.003-1.022); Urobilinogen, Urine NORM (Normal)
--- NOTE | 2021-03-16 18:31 | NUR ---
SHIFT SUMMARY PT ARRIVED TO UNIT FROM ED AT END OF SHIFT. VS STABLE. PT ON 05/05 ON BIPAP AT 100% FIO2. OXYGEN SATURATION MAINTAINED ABOVE 92%. PT LETHARGIC AND CONFUSED. ATTEMPTS TO PULL OF BIPAP MULTIPLE TIMES. PT ON CAMERA AND BED ALARM IN PLACE. PHYSICIAN NOTIFIED PT TOO LETHARGIC TO TAKE PO MEDS AND UNABLE TO TAKE XARELTO FOR AFIB. NEW ORDERS PLACED FOR ANTICOAGULANT. NEW WATERS PLACED D/T PT HAVING WATERS UPON ADMIT. UA SENT TO LAB PER PROTOCOL. WILL CONT TO MONITOR UNTIL REPORT GIVEN TO NIGHTSHIFT RN.
--- NOTE | 2021-03-16 18:36 | NUR ---
WATERS INSERTION NEW WATERS INSERTED D/T PT ARRIVING FROM UNIT WITH WATERS PRESENT ON ADMISSION. UA SENT TO LAB PER PROTOCOL
[2021-03-16 18:51] LABS: Appearance, Urine Hazy (Clear); Color, Urine Yellow (P-Yellow)
[2021-03-16 18:52] LABS: Bacteria Many /hpf; Red Blood Cells, Urine Rare /hpf (0-2); Squamous Epithelial Cells Rare /hpf (Few); White Blood Cells, Urine TNTC /hpf (0-5)
--- NOTE | 2021-03-16 19:26 | NUR ---
UPDATE CHIDI NEUMANN RN GIVEN UPDATE REGARDING PT. ASKED CHIDI NEUMANN RN IF PT HAS ANY FAMILY CONTACT INFO, SHE HAD NONE LISTED AT THIS TIME.
--- NOTE | 2021-03-16 22:07 | NUR ---
[facility] WAS CONTACTED AT THIS TIME. I SPOKE WITH A NURSE THAT STATES SHE HAS TAKEN CARE OF [facility] FOR THE LAST 7 YEARS. SHE STATED THAT HE DOES HAVE A POLST ON FILE THAT WAS UPDATED IN 2019 & THAT HIS HAD A LIST OF CONTACTS IN HER FILE THAT SHE WILL FAX OVER TO US.
[2021-03-17 04:57] LABS: BASOPHILS ABSOLUTE AUTO 0.02 K/mm3 (0.00-0.23); BASOPHILS PERCENT AUTO 0 % (0-2); EOSINOPHILS PERCENT AUTO 0 % (0-6); Hematocrit 51.9 % (37.0-53.0); Hemoglobin 15.8 g/dL (13.5-17.5); IMMATURE GRAN ABSOLUTE AUTO 0.14 K/mm3 (0.00-0.10); IMMATURE GRAN PERCENT AUTO 1 % (0-1); LYMPHOCYTES ABSOLUTE AUTO 0.51 K/mm3 (0.84-5.20); LYMPHOCYTES PERCENT AUTO 3 % (21-46); MONOCYTES ABSOLUTE AUTO 1.34 K/mm3 (0.16-1.47); MONOCYTES PERCENT AUTO 9 % (4-13); Mean Corpuscular HGB 25.5 pg (26.0-34.0); Mean Corpuscular HGB Conc 30.4 g/dL (31.5-36.5); Mean Corpuscular Volume 84 fL (80-100); Mean Platelet Volume 11.3 fL (9.1-12.4); NEUTROPHILS ABSOLUTE AUTO 13.81 K/mm3 (1.96-9.15); NEUTROPHILS PERCENT AUTO 87 % (41-73); Platelet Count 189 K/mm3 (150-400); RDW Coefficient Variation 13.1 % (11.7-14.2); RDW Standard Deviation 39.8 fL (35.1-46.3); White Blood Cell Count 15.82 K/mm3 (4.00-11.30)
[2021-03-17 05:24] LABS: Anion Gap 3 mmol/L (6-16); Blood Urea Nitrogen 40 mg/dL (8-24); Bun/Creatinine Ratio 38.5 (12.0-20.0); CO2, Blood 43 mmol/L (21-32); Calcium, Blood 8.5 mg/dL (8.5-10.1); Chloride, Blood 93 mmol/L (98-108); Creatinine, Blood 1.04 mg/dL (0.60-1.20); Glomerular Filtration Rate >60 (60-); Glucose, Blood 187 mg/dL (70-99); Potassium, Blood 3.6 mmol/L (3.5-5.5); Sodium, Blood 139 mmol/L (136-145)
--- NOTE | 2021-03-17 06:30 | NUR ---
SUMMARY PT HAS BEEN ABLE TO WAKE UP AND COMMUNICATE. HE STATES HE HAS A BROTHER IN [place] IN [place] BUT THE ONLY OTHER FAMILY CONTACT HE HAD WAS HIS . [facility] WAS CONTACTED FOR INFO, THEY SENT THE FAMILY CONTACT INFO ON FILE FROM HIS & HIS POLST FROM 2019 STATING FULL CODE STATUS, BOTH ITEMS HAVE BEEN PLACED IN THE CHART. PT VERBALIZED NO INTUBATION BUT WHEN ASKED ABOUT CPR HE SAID HE "WANTED TO BE SAVED". PT WAS REPORTED TO HAVE OCCASIONAL CONFUSION. PT IS CURRENTLY ON BIPAP 05/05, FIO2 90%. ORAL CARE & Q2 REPOSITIONING PROVIDED. WATERS IS PATENT, YELLOW URINE NOTED. PT HAS USED HIS CALL LIGHT PRN. BED ALARM IS ON FOR SAFETY, CALL LIGHT IN REACH
--- NOTE | 2021-03-17 17:05 | NUR ---
BIPAP SETTINGS REMAIN AT 14/10 WITH OXYGEN AT 90%. PT SOMNOLENT, OPENS EYES WITH REPOSITIONING,PT DOES NOT VERBALIZE TO NURSE.PT SOMNOLENT WHEN UNDISTURBED. BIOX REMAINS GREATER THAN 90% WHILE ON BIPAP DECREASED TO 85 % WHEN AIR LEAK PRESENT AROUND MASK
[2021-03-18 04:21] LABS: BASOPHILS ABSOLUTE AUTO 0.02 K/mm3 (0.00-0.23); BASOPHILS PERCENT AUTO 0 % (0-2); EOSINOPHILS PERCENT AUTO 0 % (0-6); Hematocrit 50.7 % (37.0-53.0); Hemoglobin 15.6 g/dL (13.5-17.5); IMMATURE GRAN ABSOLUTE AUTO 0.15 K/mm3 (0.00-0.10); IMMATURE GRAN PERCENT AUTO 1 % (0-1); LYMPHOCYTES ABSOLUTE AUTO 0.45 K/mm3 (0.84-5.20); LYMPHOCYTES PERCENT AUTO 3 % (21-46); MONOCYTES ABSOLUTE AUTO 1.29 K/mm3 (0.16-1.47); MONOCYTES PERCENT AUTO 8 % (4-13); Mean Corpuscular HGB 25.6 pg (26.0-34.0); Mean Corpuscular HGB Conc 30.8 g/dL (31.5-36.5); Mean Corpuscular Volume 83 fL (80-100); Mean Platelet Volume 11.2 fL (9.1-12.4); NEUTROPHILS ABSOLUTE AUTO 13.36 K/mm3 (1.96-9.15); NEUTROPHILS PERCENT AUTO 88 % (41-73); Platelet Count 189 K/mm3 (150-400); RDW Coefficient Variation 12.9 % (11.7-14.2); RDW Standard Deviation 39.2 fL (35.1-46.3); Red Blood Cell Count 6.09 M/mm3 (4.30-5.90); White Blood Cell Count 15.27 K/mm3 (4.00-11.30)
[2021-03-18 04:38] LABS: Anion Gap 3 mmol/L (6-16); Blood Urea Nitrogen 42 mg/dL (8-24); CO2, Blood 40 mmol/L (21-32); Calcium, Blood 8.9 mg/dL (8.5-10.1); Chloride, Blood 94 mmol/L (98-108); Creatinine, Blood 1.05 mg/dL (0.60-1.20); Glomerular Filtration Rate >60 (60-); Glucose, Blood 359 mg/dL (70-99); Magnesium, Blood 2.6 mg/dL (1.6-2.4); Phosphorus, Blood 2.4 mg/dL (2.5-4.9); Sodium, Blood 137 mmol/L (136-145)
--- NOTE | 2021-03-18 06:45 | NUR ---
SHIFT SUMMARY PATIENT LETHARGIC, WITH MUMBLED SPEECH, FOLLOWING SOME COMMANDS WITH GEN WEAKNESS. MUMBLES AND GROANS WHEN ASKED MOST QUESTIONS. AFIB ON THE MONITOR. FOUGHT WITH BIPAP MOST OF THE NIGHT BUT WAS ABLE TO KEEP ON HIM FOR THE MAJORITY OF SHIFT WITH FREQUENT REMINDERS. NOW ON OXYMIZER 15L SATING LOW 90'S. PRODUCTIVE COUGH. COARSE CRACKLES T/O. TACHYPENIC. TOLERATING WATER BUT HAVE NOT SEEN EAT. Q2H TUNRS AND ORAL CARE. WATERS DRAINING TO GRAVITY. CLINIMIX RUNNING PER ORDER. NO ACUTE CONERNS AT THIS TIME. WILL CONTINUE TO MONITOR UNTIL REPORT GIVEN TO SIRI RN.
[2021-03-18 11:30] LABS: Base Excess Venous 19.1 mmol/L; Bicarbonate Venous 39.6 mmol/L (24.0-30.0); PCO2 Venous 57.8 mmHg (38-42); PO2 Venous 61.8 mmHg (38-42); pH Blood Venous 7.48 (7.34-7.37)
--- NOTE | 2021-03-18 12:11 | NUR ---
CARE ASSUMPTION PATIENT IS LETHARGIC AND SLEEP. PATIENT IS EASY TO ROUSE WHEN GENTLELY TOUCHED ON THE SHOULDER TO AWAKEN. PATIENT GROANS AND MOANS WHEN AWAKEN AND THEN CLOSES EYES. PATIENT DID NOT EAT BREAKFAST. PATIENT Q2 REPOSITION AND ORAL CARE. PATIENT IS SIDE LYING WITH WATERS DRAINING WITH GRAVITY AND CLEAR YELLOW. PATIENT HAD SUPPOSITRY TYLENOL AND ENEMA PER EMAR ORDERS. PATIENT IS COMFORTABLY RESTING. CALL LIGHT WITHIN REACH. WILL CONTINUE TO MONITOR AND PROVIDE CARE.
--- NOTE | 2021-03-18 18:09 | NUR ---
SHIFT SUMMARY PATIENT IS LETHARGIC AND SLEPT MOST OF THE DAY. PATIENT IS AROUSABLE WITH GENTLE TOUCH TO THE SHOULDER. PATIENT WILL OPEN EYES AND GROAN AND THEN CLOSE EYES AGAIN. VSS. SPO2 >90% ON BIPAP. ORAL CARE EVERY 2 HOURS AND REPOSITIONING THROUGHOUT THE DAY. PATIENT STILL HAS NOT HAD A BOWEL MOVEMENT. WATERS IN PLACE DRAINING WITH GRAVITY. PATIENT HAS NOT HAD ANYTHING TO EAT THIS SHIFT, WAS NOT ALERT ENOUGH TO EAT. PATIENT IS RESTING WITH CALL LIGHT WITHIN REACH. WILL CONTINUE TO MONITOR AND PROVIDE CARE UNTIL HAND OFF WITH NEXT SHIFT.
--- NOTE | 2021-03-18 18:51 | NUR ---
Spoke at length with pt's brother Favio today. He agrees to be the spokesperson for the family, and will be calling the hospital for updates. Favio is aware that pt's spouse recently , and states he does understand that the pt's chance of survival is poor. However, he states he isn't comfortable making any decisions for his brother, but will talk to the other 2 brothers. He asked if his brother had filled out a POLST, which he has. He states he thinks following whatever the POLST says is the right thing. He will still speak with his brothers, as pt has made recent statements of NO VENTILATION. Plan to follow up on Sunday.
[2021-03-19 04:05] LABS: BASOPHILS ABSOLUTE AUTO 0.02 K/mm3 (0.00-0.23); BASOPHILS PERCENT AUTO 0 % (0-2); EOSINOPHILS PERCENT AUTO 0 % (0-6); Hematocrit 47.1 % (37.0-53.0); Hemoglobin 14.9 g/dL (13.5-17.5); IMMATURE GRAN PERCENT AUTO 1 % (0-1); LYMPHOCYTES ABSOLUTE AUTO 0.59 K/mm3 (0.84-5.20); LYMPHOCYTES PERCENT AUTO 4 % (21-46); MONOCYTES ABSOLUTE AUTO 1.37 K/mm3 (0.16-1.47); MONOCYTES PERCENT AUTO 9 % (4-13); Mean Corpuscular HGB Conc 31.6 g/dL (31.5-36.5); Mean Corpuscular Volume 82 fL (80-100); Mean Platelet Volume 11.5 fL (9.1-12.4); NEUTROPHILS ABSOLUTE AUTO 13.24 K/mm3 (1.96-9.15); NEUTROPHILS PERCENT AUTO 86 % (41-73); Platelet Count 184 K/mm3 (150-400); RDW Coefficient Variation 12.7 % (11.7-14.2); RDW Standard Deviation 38.4 fL (35.1-46.3); Red Blood Cell Count 5.74 M/mm3 (4.30-5.90); White Blood Cell Count 15.32 K/mm3 (4.00-11.30)
[2021-03-19 04:11] LABS: Anion Gap 4 mmol/L (6-16); Blood Urea Nitrogen 38 mg/dL (8-24); Bun/Creatinine Ratio 45.2 (12.0-20.0); CO2, Blood 36 mmol/L (21-32); Chloride, Blood 95 mmol/L (98-108); Creatinine, Blood 0.84 mg/dL (0.60-1.20); Glomerular Filtration Rate >60 (60-); Glucose, Blood 311 mg/dL (70-99); Magnesium, Blood 2.1 mg/dL (1.6-2.4); Phosphorus, Blood 2.6 mg/dL (2.5-4.9); Potassium, Blood 4.1 mmol/L (3.5-5.5); Sodium, Blood 135 mmol/L (136-145)
--- NOTE | 2021-03-19 05:55 | NUR ---
SHIFT SUMMARY ASSUMED CARE OF PT AT 1900. PT IS ALERT BUT NOT ORIENTED. PT WILL ANSWER YES/NO QUESTIONS WITH HEAD NODS. HEART SOUNDS IRREGULAR. LUNG OSUNDS HAVE CRACKLES T/O. PT HAS A WEAK WET COUGH. PT WAS ON BIPAP T/O THE NIGHT. PT HAD A WATERS DRAINING WITH GRAVITY. PT HAD A SMEAR OF STOOL. THE BRIDGE OF PT NOSE IS RED, GEL PUT ON FOR PROTECTION. CALL LIGHT IN REACH, BED IN LOWEST POSTION, BED ALARM ON, CAMERA MONITORING.
--- NOTE | 2021-03-19 12:56 | NUR ---
Introduction: PT refered by Palliative Care Nurse. Assessment: PT presented lying in bed semi-alert. PT would respond to name and touch of the hand. PT was asked if he believed in God, PT responded,"Yes". PT spent majority of time with eyes closed. Intervention: PT was offered a reading of scripture. PT was offered a prayer. PT was offered a hymn. Outcome: PT received a scripture reading. PT received prayer. PT appeared comforted by hymn and prayer. Follow-up: As needed or requested.
--- NOTE | 2021-03-19 13:41 | NUR ---
CARE ASSUMPTION THIS RN ASSUMED CARE OF THIS PATIENT AT APROX 0700. PATIENT BECOMES ALERT WITH GENTLE TOUCH TO SHOULDER. PATIENT WAKES UP AND IS ABLE TO NOD HEAD WHEN ASKED A QUESTION. PALLATIVE CARE IN TO SEE PATIENT AND PATIENT PLACED ON COMFORT CARE. VSS. PATIENT IS RESTING COMFORTABLY IN BED. CALL LIGHT WITHIN REACH. WILL CONTINUE TO MONITOR AND PROVIDE CARE.
--- NOTE | 2021-03-19 15:39 | NUR ---
TIME OF PATIENT ARRIVED ON COMFORT CARE APROX 1000 THIS MORNING, SEE PERVIOUS NOTE. PATIENT TIME OF IS 1527. PATIENT WAS COMFORTABLE AND IN NO PAIN. PATIENT RECEIVED MEDICATION PER EMAR ORDER. AKOSUA OCONNELL RN, NOTIFED THE FAMILY. THIS RN NOTIFED CHARGE NURSE AND NURSING CANE FLUME CHUTE OPERATOR.
--- NOTE | 2021-03-19 15:50 | NUR ---
family notified of pt decline and placed on comfort care. Chaplians are with the patient. pt passed and family notified.
--- NOTE | 2021-03-19 18:02 | NUR ---
pt to go to [facility].
== END 2021-03-19 20:16 | DRG 177 ==
LOC: ER 11:59 → ERHOLD 12:00 → PCU 17:00
PROVIDERS: Emergency Medicine; Student in an Organized Health Care Education/Training Program; ADMIT Family Medicine
PROC: 8E0ZXY6 Isolation (ICD-10-PCS; principal; 2021-03-17)
PROC: 3E0333Z Introduction of Anti-inflammatory into Peripheral Vein, Percutaneous Approach (ICD-10-PCS; 2021-03-17)
PROC: 5A09457 Assistance with Respiratory Ventilation, 24-96 Consecutive Hours, Continuous Positive Airway Pressure (ICD-10-PCS; 2021-03-17)
DX: U07.1 COVID-19 (principal); J12.82 Pneumonia due to coronavirus disease 2019; J96.01 Acute respiratory failure with hypoxia; J96.02 Acute respiratory failure with hypercapnia; G92 Toxic encephalopathy; Z66 Do not resuscitate; Z51.5 Encounter for palliative care; I50.32 Chronic diastolic (congestive) heart failure; J44.0 Chronic obstructive pulmonary disease with (acute) lower respiratory infection; I48.0 Paroxysmal atrial fibrillation; E78.5 Hyperlipidemia, unspecified; K59.00 Constipation, unspecified; D72.829 Elevated white blood cell count, unspecified; T38.0X5A Adverse effect of glucocorticoids and synthetic analogues, initial encounter; G40.909 Epilepsy, unspecified, not intractable, without status epilepticus; E11.40 Type 2 diabetes mellitus with diabetic neuropathy, unspecified; I11.0 Hypertensive heart disease with heart failure; G47.33 Obstructive sleep apnea (adult) (pediatric); Z88.8 Allergy status to other drugs, medicaments and biological substances; Z79.899 Other long term (current) drug therapy; Z79.01 Long term (current) use of anticoagulants; Z79.4 Long term (current) use of insulin; Z79.51 Long term (current) use of inhaled steroids
CPT/HCPCS: 36415; 36600; 71045; 80048; 80053; 81001; 82803; 82947; 83605; 83735; 83880; 84100; 84145; 84484; 85025; 85379; 86140; 87040; 87077; 87086; 93005; 93010; 94640; 94660; 94762; 96365; 96372; 96375; 96376; 99285-25; A9270; C1751; G0378; J0360; J0456; J0696; J1100; J1650; J1815; J1940; J1953; J2270; J2930; J7050